=== PATIENT | female | born 1995 | race Two or more races ===

== ENCOUNTER 2023-09-05 07:47 | Inpatient (IN) | payer BC ==
[2023-09-05] VITALS (17 sets, daily range): BP systolic 122–151; BP diastolic 65–73; PULSE 59–78; RESP 16–20; TEMP 97.8–98.9; O2SAT 92–98
[~2023-09-05] VITALS: Ht 185.4 cm; Wt 117.9 kg
[2023-09-05 09:24] LABS: Basophils # (auto) 0 10 ^3/uL (0-0.2); Basophils % (auto) 0.3 % (0.0-2.0); Eosinophils # (auto) 0.1 10 ^3/uL (0-0.8); Eosinophils % (auto) 1.7 % (0.0-7.0); Hematocrit 30.6 % (36.0-46.0); Hemoglobin 10.1 g/dL (12.2-16.2); Lymphocytes # (auto) 1.9 10 ^3/uL (0.4-5.4); Lymphocytes % (auto) 28.8 % (10.0-50.0); Mean Corpuscular Hemoglobin 23.9 pg (28.0-32.0); Mean Corpuscular Volume 72.5 fL (80.0-100.0); Monocytes # (auto) 0.5 10 ^3/uL (0-1.3); Monocytes % (auto) 7.4 % (0.0-12.0); Neutrophils % (auto) 61.8 % (37.0-80.0); Red Blood Cells 4.21 10^6/uL (4.0-5.20); Red Cell Distribution Width 15.6 % (11.8-14.3); White Blood Cell 6.5 10^3/uL (4.4-10.8)
[2023-09-05 09:44] LABS: INR 0.89 (0.9-1.15); Partial Thromboplastin Time 22.7 SEC (24.5-34.5); Prothrombin Time 9.5 sec (9.3-11.8)
[2023-09-05 09:48] LABS: Alanine Aminotransferase 19 U/L (7-40); Albumin 3.5 g/dL (3.2-4.8); Alkaline Phosphatase 99 U/L (46-116); Anion Gap 9 (5-15); Aspartate Aminotransferase 20 U/L (13-40); BUN/Creatinine Ratio 14.8 (10.0-20.0); Blood Urea Nitrogen 9 mg/dL (9-23); Carbon Dioxide 23 mmol/L (20-30); Chloride 107 mmol/L (98-107); Glucose 77 mg/dL (74-106); Sodium 139 mmol/L (136-145)
[2023-09-05 09:49] LABS: Bilirubin, Total 0.4 mg/dL (0.2-1.0); Total Protein 5.9 g/dL (5.7-8.2)
[2023-09-05] MEDS: LACTATED RINGER'S 1,000 ML IV ONE (10:27)
[2023-09-05 10:54] LABS: Urine Bacteria None Seen /hpf (None Seen)
[2023-09-05] MEDS: ceFAZolin 2 GM/D5W50ml 50 ML IV ONE (10:59)
[2023-09-05 11:09] LABS: Urine Blood 2+ /uL (Negative); Urine Clarity Ex.Turbid (Clear); Urine Color Light-Orange (Yellow); Urine Mucus FEW (None Seen); Urine Protein, UAD 2+ (Negative); Urine Specific Gravity 1.014 (1.001-1.035); Urine Urobilinogen Normal (Negative); Urine WBC 54 /hpf (0 - 5); Urine pH 6.5 (5.0-9.0)
[2023-09-05 11:19] LABS: Amphetamine Screen, Urine Neg (NEGATIVE)
[2023-09-05] MEDS: SODIUM CITR/CITRIC ACID ORAL SOLN 30 ML PO SCH (11:19)
[2023-09-05 11:20] LABS: Barbiturate Scree,Urine Neg (NEGATIVE); Benzodiazephine Screen, Urine Neg (NEGATIVE); Cannabinoid Screen, Urine Neg (NEGATIVE); Cocaine Screen, Urine Neg (NEGATIVE); Opiate Scree,Urine Neg (NEGATIVE); Phencyclidine Screen, Urine Neg (NEGATIVE)
[2023-09-05] MEDS ORDERED: MORPHINE SULF PF 5 MG/10 ML VIAL ONE (11:21)
[2023-09-05] MEDS ORDERED: IBUP-1456 PO ×2 (11:34→22:12)
[2023-09-05] MEDS ORDERED: DOCU-94 PO (11:34)
[2023-09-05] MEDS ORDERED: HYDR-4902 PO (11:34)
[2023-09-05] MEDS ORDERED: ONDANSETRON HCL 4 MG/2 ML VIAL IV PRN (11:45)
[2023-09-05] MEDS: GUM (CHEWING) 1 GUM CHEW CHEW ONE (11:45)
[2023-09-05] MEDS ORDERED: ePHEDrine SULFATE 50 MG/ML AMP ONE (12:52)
[2023-09-05] MEDS ORDERED: oxyTOCIN 10 UNIT/ML 10ML VIAL ONE (12:52)
[2023-09-05] MEDS ORDERED: NALOXONE HCL 0.4 MG/ML VIAL IV PRN (13:15)
[2023-09-05] MEDS ORDERED: HYDROmorphone HCL 2 MG/ML VL/or syr IV PRN (13:15)
[2023-09-05] MEDS ORDERED: DexAMETHasone SOD PHOS 10MG/1ML VIAL INJ IV PRN (13:15)
[2023-09-05] MEDS ORDERED: KETOROLAC TROMETH 30 MG/ML 1ML VIAL IV PRN (13:15)
[2023-09-05] MEDS: ONDANSETRON HCL 4 MG/2 ML VIAL IV PRN (15:07)
[2023-09-05] MEDS: METHYLERGONOVINE MALEATE 0.2 MG/ML AMP IM ONE (16:35)
[2023-09-05] MEDS ORDERED: ACETAMINOPHEN IV 1000 MG/100ML (10MG/ML) IV ONE (17:15)
[2023-09-05] MEDS: ceFAZolin 1GM/50ML 50 ML IV SCH (18:57)
[2023-09-05] MEDS: diphenhdrAMINE HCL 50 MG/1 ML VL IV PRN (18:57)
[2023-09-05 19:14] LABS: Basophils # (auto) 0 10 ^3/uL (0-0.2); Basophils % (auto) 0.1 % (0.0-2.0); Eosinophils # (auto) 0 10 ^3/uL (0-0.8); Mean Corpuscular Hgb Conc. 32.3 g/dL (32.0-36.0); Monocytes # (auto) 0.6 10 ^3/uL (0-1.3); Monocytes % (auto) 3.7 % (0.0-12.0); Neutrophils # (auto) 13.3 10 ^3/uL (1.6-8.6)
[2023-09-05 19:15] LABS: Eosinophils % (auto) 0.2 % (0.0-7.0); Hematocrit 31.1 % (36.0-46.0); Lymphocytes # (auto) 1.1 10 ^3/uL (0.4-5.4); Lymphocytes % (auto) 7.2 % (10.0-50.0); Mean Corpuscular Hemoglobin 23.3 pg (28.0-32.0); Mean Corpuscular Volume 72.2 fL (80.0-100.0); Neutrophils % (auto) 88.8 % (37.0-80.0); Red Blood Cells 4.31 10^6/uL (4.0-5.20); Red Cell Distribution Width 15.3 % (11.8-14.3)
[2023-09-05 19:28] LABS: INR 0.92 (0.9-1.15); Prothrombin Time 9.8 sec (9.3-11.8)
[2023-09-05] MEDS ORDERED: TRANEXAMIC ACID 1,000 mg/10ml INJ VIAL IV ONE (21:48)
[2023-09-05] MEDS ORDERED: FER325T PO (22:12)
[2023-09-05] MEDS ORDERED: PREN-96 PO (22:12)
[2023-09-05 22:15] LABS: Basophils # (auto) 0 10 ^3/uL (0-0.2); Basophils % (auto) 0.2 % (0.0-2.0); Eosinophils # (auto) 0 10 ^3/uL (0-0.8); Eosinophils % (auto) 0.1 % (0.0-7.0); Hematocrit 30.8 % (36.0-46.0); Hemoglobin 9.7 g/dL (12.2-16.2); Lymphocytes # (auto) 1.2 10 ^3/uL (0.4-5.4); Lymphocytes % (auto) 8.1 % (10.0-50.0); Mean Corpuscular Hemoglobin 22.9 pg (28.0-32.0); Mean Corpuscular Hgb Conc. 31.6 g/dL (32.0-36.0); Mean Corpuscular Volume 72.6 fL (80.0-100.0); Monocytes # (auto) 0.4 10 ^3/uL (0-1.3); Monocytes % (auto) 2.7 % (0.0-12.0); Neutrophils # (auto) 12.8 10 ^3/uL (1.6-8.6); Neutrophils % (auto) 88.9 % (37.0-80.0); Red Blood Cells 4.24 10^6/uL (4.0-5.20); Red Cell Distribution Width 15.8 % (11.8-14.3); White Blood Cell 14.4 10^3/uL (4.4-10.8)
[2023-09-06] VITALS (15 sets, daily range): BP systolic 118–139; BP diastolic 62–79; PULSE 73–97; RESP 16–20; TEMP 98.2–98.6; O2SAT 94–98
[2023-09-06] MEDS: LACTATED RINGER'S 1,000 ML IV SCH (00:30)
[2023-09-06] MEDS: TETRACAINE 1% INJ 2 ML VIAL IJ ONE (01:36)
[2023-09-06] MEDS: LACT. RINGERS/OXYTOCIN 20UNITS 1,000 ML IV ONE (01:36)
[2023-09-06] MEDS: NALBUPHINE HCL 10 MG/1ml INJECTION SUBCUT ONE (01:37)
[2023-09-06 06:07] LABS: RPR Non Reactive (Non Reactive)
[2023-09-06 06:46] LABS: Basophils # (auto) 0 10 ^3/uL (0-0.2); Eosinophils # (auto) 0.1 10 ^3/uL (0-0.8); Eosinophils % (auto) 0.8 % (0.0-7.0); Hemoglobin 9.1 g/dL (12.2-16.2); Lymphocytes # (auto) 1.7 10 ^3/uL (0.4-5.4); Mean Corpuscular Volume 72.2 fL (80.0-100.0); Monocytes # (auto) 0.5 10 ^3/uL (0-1.3); Neutrophils # (auto) 8.6 10 ^3/uL (1.6-8.6); White Blood Cell 10.9 10^3/uL (4.4-10.8)
[2023-09-06 06:49] LABS: Basophils % (auto) 0.2 % (0.0-2.0); Hematocrit 27.5 % (36.0-46.0); Lymphocytes % (auto) 15.8 % (10.0-50.0); Mean Corpuscular Hemoglobin 23.8 pg (28.0-32.0); Monocytes % (auto) 4.8 % (0.0-12.0); Neutrophils % (auto) 78.4 % (37.0-80.0); Red Blood Cells 3.81 10^6/uL (4.0-5.20); Red Cell Distribution Width 15.4 % (11.8-14.3)
[2023-09-06] MEDS: ceFAZolin 1GM/50ML 50 ML IV ONE (11:03)
[2023-09-06] MEDS ORDERED: BISACODYL 10 MG RECT SUPP PR PRN (11:15)
[2023-09-06] MEDS: SIMETHICONE 80 MG CHEWABLE TABLET PO SCH (13:12)
[2023-09-06] MEDS: HYDROcodone-ACET 5/325MG TAB PO PRN ×2 (13:14→22:26)
[2023-09-06] MEDS: IBUPROFEN 800 MG TAB PO PRN (15:04)
[2023-09-06] MEDS: FERROUS SULFATE 325mg EC TAB PO SCH (22:16)
[2023-09-06] MEDS: DOCUSATE SOD 100 MG CAP PO SCH (22:16)
[2023-09-07 02:48] VITALS: BP 132/77; PULSE 82; RESP 16; TEMP 97.9; O2SAT 98
[2023-09-07 07:00] VITALS: BP 133/69; PULSE 80; RESP 20; TEMP 97.9; O2SAT 98
[2023-09-07] MEDS: DOCUSATE CALCIUM 240 MG CAP PO SCH (10:49)
[2023-09-07 10:50] VITALS: BP 141/78; PULSE 85; RESP 16; TEMP 97.5; O2SAT 96
== END 2023-09-07 13:31 | disposition home or self-care (01) | DRG 787 ==
LOC: LDRP 07:47 → OBSVTOIN 08:30 → LDRP 11:52
PROVIDERS: ADMIT Obstetrics & Gynecology; ATTEND Obstetrics & Gynecology
PROC: 10D00Z1 Extraction of Products of Conception, Low, Open Approach (ICD-10-PCS; principal; 2023-09-05 11:26)
DX: O34.211 Maternal care for low transverse scar from previous cesarean delivery (principal); D62 Acute posthemorrhagic anemia; O72.1 Other immediate postpartum hemorrhage; O36.63X0 Maternal care for excessive fetal growth, third trimester, not applicable or unspecified; O24.429 Gestational diabetes mellitus in childbirth, unspecified control; Z3A.39 39 weeks gestation of pregnancy; O99.214 Obesity complicating childbirth; Z37.0 Single live birth; E66.01 Morbid (severe) obesity due to excess calories; O90.81 Anemia of the puerperium
CPT/HCPCS: 36415; 59025; 76805; 80053; 80307; 81001; 81002; 82948; 85025; 85610; 85730; 86592; 86850; 86900; 86901; 94760; 94762; 96360; 96361; 96365; 96366; 96374; 96375; G0378; J2405; J2590